=== PATIENT | female | born 1950 | race Caucasian/White ===

== ENCOUNTER 2019-11-17 15:15 | Observation (INO) | payer MEDICARE ==
[2019-11-17] MEDS ORDERED: Robitussin AC Syrup Unit Dose Cup PO PRN (15:31)
[2019-11-17] MEDS ORDERED: TYLENOL 325 MG PO PRN (15:31)
[2019-11-17] MEDS ORDERED: Sodium Chloride 0.9% 1000 ML 1,000 ML IV STA (15:31)
[2019-11-17] MEDS ORDERED: HUMALOG SQ PRN (15:31)
--- NOTE | 2019-11-17 15:36 | PCM.HP.ADD ---
Addendum to History & Physical - History & Physical Addendum Addendum to History & Physical: This certifies that the History & Physical in the electronic chart reflects the current health status of the patient. If there are changes in the H&P these changes/exceptions are listed as follows.
[2019-11-17] MEDS ORDERED: DUONEB 0.5-3 MG/3 ml Neb IH ONE (15:47)
[2019-11-17] MEDS: DUONEB 0.5-3 MG/3 ml Neb IH SCH ×2 (15:57→23:51)
[2019-11-17 16:02] LABS: BASOPHIL % 0.2 % (0.0-0.4); Basophil (Absolute #) 0.01 (0-0.4); Eosinophil (Absolute #) 0 (0-0.5); Hematocrit 40.7 % (35-47); Hemoglobin 13.3 gm/dl (12.0-16.0); Lymphocyte (Absolute #) 0.77 (1.0-4.6); Lymphocytes % 16.7 % (24.0-44.0); Mean Cell Volume 94.4 fl (78-100); Mean Corpuscular Hemoglobin 30.9 pg (26-32); Mean Corpuscular Hgb Concent. 32.7 g/dl (32-36); Mean Platelet Volume 9.5 fl (7.5-11.0); Monocyte (Absolute #) 0.74 (0.0-1.3); Neutrophil % 67.1 % (36.0-66.0); Platelet Count 199 K/mm3 (150-450); Red Blood Count 4.31 M/mm3 (4.1-5.4); Red Cell Distribution Width 13.5 % (11.5-14.0); White Blood Count 4.6 K/mm3 (4.0-10.5)
[2019-11-17 16:13] LABS: ALBUMIN 4.3 g/dL (3.5-5.0); ALKALINE PHOSPHATASE 82 U/L (38-126); ANION GAP 11.3 MEQ/L (5-15); BLOOD UREA NITROGEN 14 mg/dL (7-17); CHLORIDE 99 mmol/L (98-107); Calcium 9.4 mg/dL (8.4-10.2); Carbon Dioxide 32 mmol/L (22-30); Creatinine 1 0.59 mg/dL (0.52-1.04); Glucose 117 mg/dL (74-106); Potassium 3.4 mmol/L (3.5-5.1); SGOT/AST 26 U/L (14-36); SGPT/ALT 22 U/L (0-35); SODIUM 138 mmol/L (137-145); Total Protein 7.8 g/dL (6.3-8.2)
[2019-11-17] MEDS ORDERED: MEDICATION INTERVENTION MC SCH (16:30)
[2019-11-17 16:34] LABS: INFLUENZA B NEGATIVE (NEGATIVE); RESPIRATORY SYNCTIAL VIRUS NEGATIVE (Negative)
[2019-11-17 16:42] LABS: INFLUENZA A POSITIVE (NEGATIVE)
[2019-11-17] MEDS: ROCEPHIN 1 Gm-D5w 50 ml Bag** 1 G/50 ML IVPB IV SCH (16:49)
--- NOTE | 2019-11-17 16:52 | XRAY ---
Indication: Fever, cough, vomiting, headache, and weakness. Comparison: December 11, 2018. PA/lateral chest unchanged again with a few tiny calcified granulomas and minimal left base fibrosis/scarring/suture material. Remaining heart and lungs unremarkable. Bony thorax intact again with mild degenerative changes. Impression: Continued nonacute chest with chronic features.
[2019-11-17] MEDS ORDERED: INSULIN REGULAR HUMAN 40 UNIT IJ SCH (17:30)
[2019-11-17] MEDS ORDERED: Robitussin-Dm Syrup PO PRN (17:37)
[2019-11-17] MEDS: Sodium Chloride 0.9% 1000 ML 1,000 ML IV SCH (17:48)
[2019-11-17] MEDS: HUMULIN R SQ SCH ×2 (17:49→18:10)
[2019-11-17] MEDS: Glucophage 500 MG PO SCH ×2 (17:49→21:13)
[2019-11-17] MEDS ORDERED: Actos 30 MG PO SCH (18:00)
[2019-11-17] MEDS: Tamiflu 75MG Capsule PO SCH (21:13)
[2019-11-18] MEDS: Sodium Chloride 0.9% 1000 ML 1,000 ML IV SCH (03:32)
[2019-11-18] MEDS ORDERED: Novolin N SQ SCH ×2 (08:00→10:00)
[2019-11-18] MEDS: DUONEB 0.5-3 MG/3 ml Neb IH SCH ×2 (08:01→13:00)
[2019-11-18] MEDS: HUMULIN R SQ SCH (09:26)
[2019-11-18] MEDS: Tamiflu 75MG Capsule PO SCH (09:27)
[2019-11-18] MEDS: ROCEPHIN 1 Gm-D5w 50 ml Bag** 1 G/50 ML IVPB IV SCH (09:27)
[2019-11-18 12:09] VITALS: BP 139/66; O2SAT 97
--- NOTE | 2019-11-18 12:46 | PCM.DS ---
Discharge Summary Date of Admission: 11/17/19 15:28 Admitting Physician: SAMUEL KENNEDY Primary Care Provider: SAMUEL KENNEDY Allergies Allergies codeine Allergy (Severe, Verified 11/17/19 15:49) difficulty breathing and hives egg Allergy (Severe, Verified 11/17/19 15:49) sob, hives morphine Allergy (Severe, Verified 11/17/19 15:49) hives swelling Penicillins Allergy (Severe, Verified 11/17/19 15:49) hives swelling procaine [From Novocain] Allergy (Severe, Verified 11/17/19 15:49) hives and face swelling hydromorphone Allergy (Intermediate, Verified 11/17/19 15:49) vomiting aspirin Allergy (Mild, Verified 11/17/19 15:49) upsets stomach Hospital Summary - Hospital Course Hospital Course: Chief Complaint Diagnosis bronchitis Allergies Allergy/AdvReac Type Severity Reaction Status Date / Time codeine Allergy Severe Verified 11/17/19 15:49 egg Allergy Severe Verified 11/17/19 15:49 morphine Allergy Severe Verified 11/17/19 15:49 Penicillins Allergy Severe Verified 11/17/19 15:49 procaine [From Novocain] Allergy Severe Verified 11/17/19 15:49 hydromorphone Allergy Intermediate Verified 11/17/19 15:49 aspirin Allergy Mild Verified 11/17/19 15:49 Vital Signs (Last 24 hours) Temp Pulse Resp BP Pulse Ox 11/18/19 12:00 98.4 F 97 H 18 139/66 97 11/18/19 08:04 95 11/18/19 08:02 80 20 95 11/18/19 07:33 98.3 F 83 18 136/66 93 L 11/18/19 04:00 98.9 F 92 H 16 124/61 93 L 11/18/19 00:00 99.2 F 86 15 130/62 96 11/17/19 23:51 86 15 96 11/17/19 20:00 97.2 F 87 20 126/65 98 11/17/19 16:30 98.0 F 84 20 137/64 92 L 11/17/19 16:06 98.0 F 84 18 137/64 92 L 11/17/19 16:03 88 18 94 L Home Medications Medication Instructions Recorded Confirmed Last Taken Type Insulin Regular, Human [Novolin R] 10 unit IJ TIDWM 11/17/19 11/18/19 11/17/19 History Pioglitazone 30 mg [Actos 30 30 mg PO EVENING MEAL 11/17/19 11/17/19 History MG] Current Medications Generic Name Dose Route Start Last Admin Trade Name Freq PRN Reason Stop Dose Admin Acetaminophen 325 mg 11/17/19 15:31 11/18/19 03:31 Tylenol 325 Mg PO 12/17/19 15:30 325 mg Q4H PRN PRN Administration PAIN, FEVER, HEADACHE Albuterol/Ipratropium 3 ml 11/17/19 19:00 11/18/19 08:01 Duoneb 0.5-3 Mg/3 Ml Neb IH 12/17/19 18:59 3 ml Q6HRT KACY Administration Guaifenesin/Dextromethorphan 10 ml 11/17/19 17:37 Robitussin-Dm Syrup PO 12/17/19 17:36 Q4H PRN PRN COUGH Ceftriaxone Sodium/Dextrose 1 g in 50 mls @ 100 mls/hr 11/17/19 15:45 09:27 Rocephin 1 Gm-D5w 50 Ml Bag IV 12/17/19 15:44 100 mls/hr Q24H10 KACY Administration Sodium Chloride 1,000 mls @ 100 mls/hr 11/17/19 15:45 11/18/19 03:32 Sodium Chloride 0.9% 1000 Ml IV 12/17/19 15:44 100 mls/hr .Q10H KACY Administration Insulin Human Lispro 0 unit 11/17/19 15:31 Humalog SQ 12/17/19 15:30 UD PRN HYPERGLYCEMIA Insulin Human NPH 40 unit 11/18/19 08:00 11/18/19 09:27 Novolin N SQ 12/18/19 07:59 Not Given AMINSULIN KACY Insulin Human Regular 40 unit 11/17/19 17:30 11/18/19 09:26 Humulin R SQ 12/17/19 17:29 10 unit BIDAC KACY Administration Metformin HCl 250 mg 11/17/19 18:00 11/17/19 21:13 Glucophage 500 Mg PO 12/17/19 17:59 250 mg 1800,2200 KACY Administration Oseltamivir Phosphate 75 mg 11/17/19 22:00 11/18/19 09:27 Tamiflu 75mg Capsule PO 11/22/19 21:59 75 mg BID KACY Administration Pioglitazone HCl 30 mg 11/17/19 18:00 11/17/19 17:49 Actos 30 Mg PO 12/17/19 17:59 30 mg EVENING MEAL KACY Administration Discontinued Medications Generic Name Dose Route Start Last Admin Trade Name Sher PRN Reason Stop Dose Admin Albuterol/Ipratropium Confirm 11/17/19 15:47 Duoneb 0.5-3 Mg/3 Ml Neb Administered 11/17/19 15:48 Dose 3 ml IH .STK-MED ONE Sodium Chloride 1,000 mls @ 999 mls/hr 11/17/19 15:31 11/17/19 16:49 Sodium Chloride 0.9% 1000 Ml IV 11/17/19 16:31 999 mls/hr .Q1H1M STA Administration Miscellaneous Information 0 each 11/17/19 16:30 Medication Intervention 12/17/19 16:29 .RN TO CHECK WITH DR WOODRUFF Intake & Output (Last 24 hours) 11/16/19 11/17/19 11/18/19 11/19/19 11:59 11:59 11:59 11:59 Intake Total 3359 Output Total 1450 Balance 1909 Weight 89.3 kg Laboratory Results (Last 24 hours) 11/17/19 11/17/19 11/17/19 17:00 16:00 16:00 WBC RBC Hgb Hct MCV MCH MCHC RDW Plt Count MPV Gran % Eos # (Auto) Absolute Lymphs (auto) Absolute Monos (auto) Lymphocytes % Monocytes % Eosinophils % Basophils % Absolute Granulocytes Basophils # Sodium 138 Potassium 3.4 L Chloride 99 Carbon Dioxide 32 H Anion Gap 11.3 BUN 14 Creatinine 0.59 Estimated GFR > 60.0 Glucose 117 H Hemoglobin A1c 8.63 H Calcium 9.4 Total Bilirubin 0.40 AST 26 ALT 22 Alkaline Phosphatase 82 Serum Total Protein 7.8 Albumin 4.3 Influenza Type A Ag POSITIVE Influenza Type B Ag NEGATIVE RSV (PCR) NEGATIVE 11/17/19 16:00 WBC 4.6 RBC 4.31 Hgb 13.3 Hct 40.7 MCV 94.4 MCH 30.9 MCHC 32.7 RDW 13.5 Plt Count 199 MPV 9.5 Gran % 67.1 H Eos # (Auto) 0 Absolute Lymphs (auto) 0.77 L Absolute Monos (auto) 0.74 Lymphocytes % 16.7 L Monocytes % 16.0 H Eosinophils % 0.0 Basophils % 0.2 Absolute Granulocytes 3.10 Basophils # 0.01 Sodium Potassium Chloride Carbon Dioxide Anion Gap BUN Creatinine Estimated GFR Glucose Hemoglobin A1c Calcium Total Bilirubin AST ALT Alkaline Phosphatase Serum Total Protein Albumin Influenza Type A Ag Influenza Type B Ag RSV (PCR) Orders (Last 24 hours) Category Date Time Status Up Ad Paola TOLERATED Activity 11/17/19 15:32 Active Accucheck ACHS Care 11/17/19 15:32 Active Isolation, Initiate & Maintain Q4H Care 11/17/19 16:50 Active Miscellaneous Nursing Order ROUTINE Care 11/17/19 17:[address] in Observation ROUTINE Care 11/17/19 15:31 Active 2000 Calorie ADA Diet 11/17/19 Dinner Active Nutritional Admission Screen once Diet 11/17/19 16:21 Active CHEST 2 VIEWS (PA AND LAT) Stat Exams 11/17/19 16:40 Completed CBC W DIFF Stat Lab 11/17/19 16:00 Completed CMP Stat Lab 11/17/19 16:00 Completed HEMOGLOBIN A1C Urgent Lab 11/17/19 17:00 Completed Respiratory Panel Stat Lab 11/17/19 16:00 Completed Acetaminophen 325 mg [Tylenol 325 mg] Med 11/17/19 15:31 Active 325 mg PO Q4H PRN PRN Albuterol/Ipratropium 3ml Neb* [DUONEB 0.5-3 MG/3 ml Med 11/17/19 15:47 Discontinued Neb] 3 ml IH .STK-MED ONE Albuterol/Ipratropium 3ml Neb* [DUONEB 0.5-3 MG/3 ml Med 11/17/19 19:00 Active Neb] 3 ml IH Q6HRT Ceftriaxone 1 GM/50 ML PREMIX* [ROCEPHIN 1 Gm-D5w 50 ml Med 11/17/19 15:45 Active Bag] 1 g in 50 ml IV Q24H10 Guaifenesin/D-Methorphan Hb [Robitussin-Dm Syrup] Med 11/17/19 17:37 Active 10 ml PO Q4H PRN PRN Insulin Lispro [Humalog] Med 11/17/19 15:31 Active See Dose Instructions SQ UD PRN Insulin NPH Human Recom [Novolin N] Med 11/18/19 08:00 Active 40 unit SQ AMINSULIN Insulin Regular, Human [Humulin R] Med 11/17/19 17:30 Active 40 unit SQ BIDAC Medication Intervention Med 11/17/19 16:30 Discontinued 0 each .RN TO CHECK WITH Metformin HCl 500 mg [Glucophage 500 MG] Med 11/17/19 18:00 Active 250 mg PO 1800,2200 NaCl 0.9% 1000 ml [Sodium Chloride 0.9% 1000 ML] 1,000 Med 11/17/19 15:45 Active ml IV 100 mls/hr NaCl 0.9% 1000 ml [Sodium Chloride 0.9% 1000 ML] 1,000 Med 11/17/19 15:31 Discontinued ml IV 999 mls/hr Oseltamivir 75 mg [Tamiflu 75MG Capsule] Med 11/17/19 22:00 Active 75 mg PO BID Pioglitazone 30 mg [Actos 30 MG] Med 11/17/19 18:00 Active 30 mg PO EVENING MEAL Peak Expiratory Flow Rate ONCE RT 11/17/19 15:58 Active Pulse Oximetry .spot check RT 11/17/19 15:58 Active Respiratory Therapy Assessment DAILY RT 11/17/19 15:57 Active Patient Care Notes (Last 24 hours) 11/17/19 23:47 Nursing Note [facility] Tam[facility] Grace [facility] [address] [facility] Initialized on 11/17/19 23:47 - END OF NOTE 11/17/19 18:27 Nursing Note by Sara Molina Attempted to call the [place] [facility] for possible Melchor testing per Dr Kennedy request. The after hours number is unavailable and I was unable to speak with anyone after multiple attempts. Will pass on for Day shift or Infection Control to do after 815 am on 11/17 Initialized on 11/17/19 18:27 - END OF NOTE 11/17/19 17:35 Nursing Note by Tammy Sprague Reported Dr Kennedy via phone pt's Flu A result, chest x-ray and received confirmation on pt's cough med. Initialized on 11/17/19 17:35 - END OF NOTE 11/17/19 16:26 Nursing Note by Tammy Sprague Dr called with home meds and clarification of pt's cough med. New orders received. Initialized on 11/17/19 16:26 - END OF NOTE 11/17/19 15:58 Nursing Note by Wendy Esquivel I CALLED OFFICE TO LET HIM KNOW HIS ADMIT IS HERE. Initialized on 11/17/19 15:58 - END OF NOTE - Vitals & Intake/Output Vital Signs: Vital Signs Temperature 98.4 F 11/18/19 12:00 Pulse Rate 97 H 11/18/19 12:00 Respiratory Rate 18 11/18/19 12:00 Blood Pressure 139/66 11/18/19 12:00 O2 Sat by Pulse Oximetry 97 11/18/19 12:00 Intake & Output: Intake & Output 11/16/19 11/17/19 11/18/19 11/19/19 11:59 11:59 11:59 11:59 Intake Total 3359 Output Total 1450 Balance 1909 Weight 89.3 kg - Lab Result Diagrams: 11/17/19 16:00 11/17/19 16:00 Lab Results-Last 24 Hrs: Accuchecks Date 11/18/19 Date 11/17/19 Time 07:30 Time 17:00 Accucheck Value: 187 Accucheck Value: 174 Lab Results-Last 24 Hours 11/17/19 11/17/19 11/17/19 Range/Units 16:00 16:00 16:00 WBC 4.6 (4.0-10.5) K/mm3 RBC 4.31 (4.1-5.4) M/mm3 Hgb 13.3 (12.0-16.0) gm/dl Hct 40.7 (35-47) % MCV 94.4 (78-100) fl MCH 30.9 (26-32) pg MCHC 32.7 (32-36) g/dl RDW 13.5 (11.5-14.0) % Plt Count 199 (150-450) K/mm3 MPV 9.5 (7.5-11.0) fl Gran % 67.1 H (36.0-66.0) % Eos # (Auto) 0 (0-0.5) Absolute Lymphs (auto) 0.77 L (1.0-4.6) Absolute Monos (auto) 0.74 (0.0-1.3) Lymphocytes % 16.7 L (24.0-44.0) % Monocytes % 16.0 H (0.0-12.0) % Eosinophils % 0.0 (0.00-5.0) % Basophils % 0.2 (0.0-0.4) % Absolute Granulocytes 3.10 (1.4-6.9) Basophils # 0.01 (0-0.4) Sodium 138 (137-145) mmol/L Potassium 3.4 L (3.5-5.1) mmol/L Chloride 99 (98-107) mmol/L Carbon Dioxide 32 H (22-30) mmol/L Anion Gap 11.3 (5-15) MEQ/L BUN 14 (7-17) mg/dL Creatinine 0.59 (0.52-1.04) mg/dL Estimated GFR > 60.0 ML/MIN Glucose 117 H (74-106) mg/dL Hemoglobin A1c (4.5-6.0) % Calcium 9.4 (8.4-10.2) mg/dL Total Bilirubin 0.40 (0.2-1.3) mg/dL AST 26 (14-36) U/L ALT 22 (0-35) U/L Alkaline Phosphatase 82 (38-126) U/L Serum Total Protein 7.8 (6.3-8.2) g/dL Albumin 4.3 (3.5-5.0) g/dL Influenza Type A Ag POSITIVE (NEGATIVE) Influenza Type B Ag NEGATIVE (NEGATIVE) RSV (PCR) NEGATIVE (Negative) 11/17/19 Range/Units 17:00 WBC (4.0-10.5) K/mm3 RBC (4.1-5.4) M/mm3 Hgb (12.0-16.0) gm/dl Hct (35-47) % MCV (78-100) fl MCH (26-32) pg MCHC (32-36) g/dl RDW (11.5-14.0) % Plt Count (150-450) K/mm3 MPV (7.5-11.0) fl Gran % (36.0-66.0) % Eos # (Auto) (0-0.5) Absolute Lymphs (auto) (1.0-4.6) Absolute Monos (auto) (0.0-1.3) Lymphocytes % (24.0-44.0) % Monocytes % (0.0-12.0) % Eosinophils % (0.00-5.0) % Basophils % (0.0-0.4) % Absolute Granulocytes (1.4-6.9) Basophils # (0-0.4) Sodium (137-145) mmol/L Potassium (3.5-5.1) mmol/L Chloride (98-107) mmol/L Carbon Dioxide (22-30) mmol/L Anion Gap (5-15) MEQ/L BUN (7-17) mg/dL Creatinine (0.52-1.04) mg/dL Estimated GFR ML/MIN Glucose (74-106) mg/dL Hemoglobin A1c 8.63 H (4.5-6.0) % Calcium (8.4-10.2) mg/dL Total Bilirubin (0.2-1.3) mg/dL AST (14-36) U/L ALT (0-35) U/L Alkaline Phosphatase (38-126) U/L Serum Total Protein (6.3-8.2) g/dL Albumin (3.5-5.0) g/dL Influenza Type A Ag (NEGATIVE) Influenza Type B Ag (NEGATIVE) RSV (PCR) (Negative) Micro Results-Entire Visit: Accuchecks Date 11/18/19 Date 11/17/19 Time 07:30 Time 17:00 Accucheck Value: 187 Accucheck Value: 174 - Radiology Exams Ordered Rad Exams-Entire Visit: Radiology Procedures Category Date Time Status CHEST 2 VIEWS (PA AND LAT) Stat Exams 11/17/19 16:40 Completed - Procedures and Test Procedures and Tests throughout Hospitalization: Therapy Orders & Screens 11/17/19 15:57 Respiratory Therapy Assessment DAILY Comment: Diagnosis: bronchitis 11/17/19 15:58 Peak Expiratory Flow Rate ONCE Comment: Reason For Exam: Diagnosis: bronchitis Discharge Exam General Appearance: no apparent distress, alert Neurologic Exam: alert, oriented x 3, cooperative, normal mood/affect, nml cerebellar function, sensation nml, No motor deficits Eye Exam: PERRL, EOMI, eyes nml inspection Ears, Nose, Throat Exam: normal ENT inspection, pharynx normal, moist mucous membranes Neck Exam: normal inspection, non-tender, supple, full range of motion Respiratory Exam: normal breath sounds, lungs clear, No respiratory distress Cardiovascular Exam: regular rate/rhythm, normal heart sounds Gastrointestinal/Abdomen Exam: soft, No tenderness, No mass Pelvic Exam: deferred Rectal Exam: deferred Back Exam: normal inspection, normal range of motion, No CVA tenderness, No vertebral tenderness Extremity Exam: normal inspection, normal range of motion Skin Exam: normal color, warm, dry Final Diagnosis/Problem List - Final Discharge Diagnosis/Problem (1) Influenza A Current Visit: Yes Status: Acute Priority: High Assessment & Plan: Chief Complaint Diagnosis bronchitis Allergies Allergy/AdvReac Type Severity Reaction Status Date / Time codeine Allergy Severe Verified 11/17/19 15:49 egg Allergy Severe Verified 11/17/19 15:49 morphine Allergy Severe Verified 11/17/19 15:49 Penicillins Allergy Severe Verified 11/17/19 15:49 procaine [From Novocain] Allergy Severe Verified 11/17/19 15:49 hydromorphone Allergy Intermediate Verified 11/17/19 15:49 aspirin Allergy Mild Verified 11/17/19 15:49 Vital Signs (Last 24 hours) Temp Pulse Resp BP Pulse Ox 11/18/19 12:00 98.4 F 97 H 18 139/66 97 11/18/19 08:04 95 11/18/19 08:02 80 20 95 11/18/19 07:33 98.3 F 83 18 136/66 93 L 11/18/19 04:00 98.9 F 92 H 16 124/61 93 L 11/18/19 00:00 99.2 F 86 15 130/62 96 11/17/19 23:51 86 15 96 11/17/19 20:00 97.2 F 87 20 126/65 98 11/17/19 16:30 98.0 F 84 20 137/64 92 L 11/17/19 16:06 98.0 F 84 18 137/64 92 L 11/17/19 16:03 88 18 94 L Home Medications Medication Instructions Recorded Confirmed Last Taken Type Insulin Regular, Human [Novolin R] 10 unit IJ TIDWM 11/17/19 11/18/19 11/17/19 History Pioglitazone 30 mg [Actos 30 30 mg PO EVENING MEAL 11/17/19 11/17/19 History MG] Current Medications Generic Name Dose Route Start Last Admin Trade Name Freq PRN Reason Stop Dose Admin Acetaminophen 325 mg 11/17/19 15:31 11/18/19 03:31 Tylenol 325 Mg PO 12/17/19 15:30 325 mg Q4H PRN PRN Administration PAIN, FEVER, HEADACHE Albuterol/Ipratropium 3 ml 11/17/19 19:00 11/18/19 08:01 Duoneb 0.5-3 Mg/3 Ml Neb IH 12/17/19 18:59 3 ml Q6HRT KACY Administration Guaifenesin/Dextromethorphan 10 ml 11/17/19 17:37 Robitussin-Dm Syrup PO 12/17/19 17:36 Q4H PRN PRN COUGH Ceftriaxone Sodium/Dextrose 1 g in 50 mls @ 100 mls/hr 11/17/19 15:45 09:27 Rocephin 1 Gm-D5w 50 Ml Bag IV 12/17/19 15:44 100 mls/hr Q24H10 KACY Administration Sodium Chloride 1,000 mls @ 100 mls/hr 11/17/19 15:45 11/18/19 03:32 Sodium Chloride 0.9% 1000 Ml IV 12/17/19 15:44 100 mls/hr .Q10H KACY Administration Insulin Human Lispro 0 unit 11/17/19 15:31 Humalog SQ 12/17/19 15:30 UD PRN HYPERGLYCEMIA Insulin Human NPH 40 unit 11/18/19 08:00 11/18/19 09:27 Novolin N SQ 12/18/19 07:59 Not Given AMINSULIN KACY Insulin Human Regular 40 unit 11/17/19 17:30 11/18/19 09:26 Humulin R SQ 12/17/19 17:29 10 unit BIDAC KACY Administration Metformin HCl 250 mg 11/17/19 18:00 11/17/19 21:13 Glucophage 500 Mg PO 12/17/19 17:59 250 mg 1800,2200 KACY Administration Oseltamivir Phosphate 75 mg 11/17/19 22:00 11/18/19 09:27 Tamiflu 75mg Capsule PO 11/22/19 21:59 75 mg BID KACY Administration Pioglitazone HCl 30 mg 11/17/19 18:00 11/17/19 17:49 Actos 30 Mg PO 12/17/19 17:59 30 mg EVENING MEAL KACY Administration Discontinued Medications Generic Name Dose Route Start Last Admin Trade Name Sher PRN Reason Stop Dose Admin Albuterol/Ipratropium Confirm 11/17/19 15:47 Duoneb 0.5-3 Mg/3 Ml Neb Administered 11/17/19 15:48 Dose 3 ml IH .STK-MED ONE Sodium Chloride 1,000 mls @ 999 mls/hr 11/17/19 15:31 11/17/19 16:49 Sodium Chloride 0.9% 1000 Ml IV 11/17/19 16:31 999 mls/hr .Q1H1M STA Administration Miscellaneous Information 0 each 11/17/19 16:30 Medication Intervention 12/17/19 16:29 .RN TO CHECK WITH DR WOODRUFF Intake & Output (Last 24 hours) 11/16/19 11/17/19 11/18/19 11/19/19 11:59 11:59 11:59 11:59 Intake Total 3359 Output Total 1450 Balance 1909 Weight 89.3 kg Laboratory Results (Last 24 hours) 11/17/19 11/17/19 11/17/19 17:00 16:00 16:00 WBC RBC Hgb Hct MCV MCH MCHC RDW Plt Count MPV Gran % Eos # (Auto) Absolute Lymphs (auto) Absolute Monos (auto) Lymphocytes % Monocytes % Eosinophils % Basophils % Absolute Granulocytes Basophils # Sodium 138 Potassium 3.4 L Chloride 99 Carbon Dioxide 32 H Anion Gap 11.3 BUN 14 Creatinine 0.59 Estimated GFR > 60.0 Glucose 117 H Hemoglobin A1c 8.63 H Calcium 9.4 Total Bilirubin 0.40 AST 26 ALT 22 Alkaline Phosphatase 82 Serum Total Protein 7.8 Albumin 4.3 Influenza Type A Ag POSITIVE Influenza Type B Ag NEGATIVE RSV (PCR) NEGATIVE 11/17/19 16:00 WBC 4.6 RBC 4.31 Hgb 13.3 Hct 40.7 MCV 94.4 MCH 30.9 MCHC 32.7 RDW 13.5 Plt Count 199 MPV 9.5 Gran % 67.1 H Eos # (Auto) 0 Absolute Lymphs (auto) 0.77 L Absolute Monos (auto) 0.74 Lymphocytes % 16.7 L Monocytes % 16.0 H Eosinophils % 0.0 Basophils % 0.2 Absolute Granulocytes 3.10 Basophils # 0.01 Sodium Potassium Chloride Carbon Dioxide Anion Gap BUN Creatinine Estimated GFR Glucose Hemoglobin A1c Calcium Total Bilirubin AST ALT Alkaline Phosphatase Serum Total Protein Albumin Influenza Type A Ag Influenza Type B Ag RSV (PCR) Orders (Last 24 hours) Category Date Time Status Up Ad Paola TOLERATED Activity 11/17/19 15:32 Active Accucheck ACHS Care 11/17/19 15:32 Active Isolation, Initiate & Maintain Q4H Care 11/17/19 16:50 Active Miscellaneous Nursing Order ROUTINE Care 11/17/19 17:[address] in Observation ROUTINE Care 11/17/19 15:31 Active 2000 Calorie ADA Diet 11/17/19 Dinner Active Nutritional Admission Screen once Diet 11/17/19 16:21 Active CHEST 2 VIEWS (PA AND LAT) Stat Exams 11/17/19 16:40 Completed CBC W DIFF Stat Lab 11/17/19 16:00 Completed CMP Stat Lab 11/17/19 16:00 Completed HEMOGLOBIN A1C Urgent Lab 11/17/19 17:00 Completed Respiratory Panel Stat Lab 11/17/19 16:00 Completed Acetaminophen 325 mg [Tylenol 325 mg] Med 11/17/19 15:31 Active 325 mg PO Q4H PRN PRN Albuterol/Ipratropium 3ml Neb* [DUONEB 0.5-3 MG/3 ml Med 11/17/19 15:47 Discontinued Neb] 3 ml IH .STK-MED ONE Albuterol/Ipratropium 3ml Neb* [DUONEB 0.5-3 MG/3 ml Med 11/17/19 19:00 Active Neb] 3 ml IH Q6HRT Ceftriaxone 1 GM/50 ML PREMIX* [ROCEPHIN 1 Gm-D5w 50 ml Med 11/17/19 15:45 Active Bag] 1 g in 50 ml IV Q24H10 Guaifenesin/D-Methorphan Hb [Robitussin-Dm Syrup] Med 11/17/19 17:37 Active 10 ml PO Q4H PRN PRN Insulin Lispro [Humalog] Med 11/17/19 15:31 Active See Dose Instructions SQ UD PRN Insulin NPH Human Recom [Novolin N] Med 11/18/19 08:00 Active 40 unit SQ AMINSULIN Insulin Regular, Human [Humulin R] Med 11/17/19 17:30 Active 40 unit SQ BIDAC Medication Intervention Med 11/17/19 16:30 Discontinued 0 each MC .RN TO CHECK WITH Metformin HCl 500 mg [Glucophage 500 MG] Med 11/17/19 18:00 Active 250 mg PO 1800,2200 NaCl 0.9% 1000 ml [Sodium Chloride 0.9% 1000 ML] 1,000 Med 11/17/19 15:45 Active ml IV 100 mls/hr NaCl 0.9% 1000 ml [Sodium Chloride 0.9% 1000 ML] 1,000 Med 11/17/19 15:31 Discontinued ml IV 999 mls/hr Oseltamivir 75 mg [Tamiflu 75MG Capsule] Med 11/17/19 22:00 Active 75 mg PO BID Pioglitazone 30 mg [Actos 30 MG] Med 11/17/19 18:00 Active 30 mg PO EVENING MEAL Peak Expiratory Flow Rate ONCE RT 11/17/19 15:58 Active Pulse Oximetry .spot check RT 11/17/19 15:58 Active Respiratory Therapy Assessment DAILY RT 11/17/19 15:57 Active Patient Care Notes (Last 24 hours) 11/17/19 23:47 Nursing Note [facility] Tammy Grace [facility] [address] [facility] Initialized on 11/17/19 23:47 - END OF NOTE 11/17/19 18:27 Nursing Note by Sara Molina Attempted to call the [facility] for possible Melchor testing per Dr Kennedy request. The after hours number is unavailable and I was unable to speak with anyone after multiple attempts. Will pass on for Day shift or Infection Control to do after 815 am on 11/17 Initialized on 11/17/19 18:27 - END OF NOTE 11/17/19 17:35 Nursing Note by Tammy Sprague Reported Dr Kennedy via phone pt's Flu A result, chest x-ray and received confirmation on pt's cough med. Initialized on 11/17/19 17:35 - END OF NOTE 11/17/19 16:26 Nursing Note by Tammy Sprague Dr called with home meds and clarification of pt's cough med. New orders received. Initialized on 11/17/19 16:26 - END OF NOTE 11/17/19 15:58 Nursing Note by Wendy Esquivel I CALLED OFFICE TO LET HIM KNOW HIS ADMIT IS HERE. Initialized on 11/17/19 15:58 - END OF NOTE Code(s): J10.1 - FLU DUE TO OTH IDENT INFLUENZA VIRUS W OTH RESP MANIFEST (2) Bronchitis Current Visit: Yes Status: Resolved Code(s): J40 - BRONCHITIS, NOT SPECIFIED ACUTE OR CHRONIC - Discharge Discharge Date: 11/18/19 Disposition: Home, Self-Care Condition: Stable Prescriptions: New Oseltamivir 75 mg [Tamiflu 75MG Capsule] 75 mg PO BID #10 cap Continue Insulin NPH Human Recom [Novolin N] 40 unit SQ HS Metformin HCl 500 mg [Glucophage 500 MG] 500 mg PO EVENING MEAL Pioglitazone 30 mg [Actos 30 MG] 30 mg PO EVENING MEAL Insulin Regular, Human [Novolin R] 10 unit IJ TIDWM Follow up with: SAMUEL KENNEDY MD [Primary Care Provider] - 1 Week
[2019-11-18 13:03] VITALS: PULSE 100
== END 2019-11-18 14:35 | disposition home or self-care (01) ==
LOC: MED SURG 15:28
PROVIDERS: ADMIT General Practice; ATTEND General Practice
DX: J09.X2 Influenza due to identified novel influenza A virus with other respiratory manifestations (principal); J20.9 Acute bronchitis, unspecified; E11.42 Type 2 diabetes mellitus with diabetic polyneuropathy; E78.5 Hyperlipidemia, unspecified; R19.7 Diarrhea, unspecified; Z79.899 Other long term (current) drug therapy
CPT/HCPCS: 36415; 71046; 80053; 82962; 83036; 85025; 87631; 94150; 94640; 94760; G0378; J0696; J1815; A9270-GY

== ENCOUNTER 2021-12-21 07:01 | Day surgery (SDC) | payer MEDICARE ==
[2021-12-21] MEDS ORDERED: Decadron 4 MG INJ IV ONE (07:02)
[2021-12-21] MEDS ORDERED: Xylocaine 1% Vial 30 ML PF IJ ONE (07:02)
[2021-12-21] MEDS ORDERED: Sodium Chloride 0.9(Preservative Free) 10 ML IJ ONE (07:02)
[2021-12-21] MEDS ORDERED: Depo-Medrol 40 MG/ML IM ONE (07:02)
[2021-12-21] MEDS ORDERED: DIPRIVAN 200 MG/20 ML IV ONE ×2 (08:38→08:52)
[2021-12-21] MEDS ORDERED: Lactated Ringers 1,000 ML IV ONE (08:46)
--- NOTE | 2021-12-21 10:19 | XRAY ---
Indication: Left piriformis muscle injection Intraoperative fluoroscopy provided for 27 seconds. Single digital spot image submitted for interpretation demonstrates posterior needle tip projecting over the expected left piriformis muscle. Small amount of contrast injected for needle tip placement. Correlate with intraoperative findings/report.
--- NOTE | 2021-12-21 10:19 | XRAY ---
Indication: Left L4-S1 transforaminal PABLO. Intraoperative fluoroscopy provided for 32 seconds. 5 digital spot image submitted for interpretation demonstrates posterior needle tips projecting over the expected left L4 and L5 nerve roots. Small amount of contrast injected for needle tip placement. Correlate with intraoperative findings/report.
--- NOTE | 2021-12-21 11:18 | XRAY ---
32 seconds fluoroscopy time in surgery for left L4-S1 transforaminal PABLO.
--- NOTE | 2021-12-21 11:18 | XRAY ---
27 seconds fluoroscopy time in surgery for injection of the left piriformis muscle.
== END 2021-12-21 09:25 | disposition home or self-care (01) ==
LOC: SDC-PAIN 07:01
PROVIDERS: ATTEND Psychiatry & Neurology Pain Medicine
DX: M54.16 Radiculopathy, lumbar region (principal); M79.18 Myalgia, other site; E11.9 Type 2 diabetes mellitus without complications; Z79.899 Other long term (current) drug therapy
CPT/HCPCS: 20552; 64483; 64484; 72020; 72100; 77002; 77003; 82947; 99100; J1030; J1100; J2001; J2704; Q9966

== ENCOUNTER 2022-01-18 07:00 | Day surgery (SDC) | payer MEDICARE ==
[2022-01-18] MEDS ORDERED: Depo-Medrol 40 MG/ML IM ONE (07:01)
[2022-01-18] MEDS ORDERED: BUPIVACAINE 0.5% VIAL IJ ONE (07:01)
[2022-01-18] MEDS ORDERED: DIPRIVAN 200 MG/20 ML IV ONE (08:53)
[2022-01-18] MEDS ORDERED: Lactated Ringers 1,000 ML IV ONE (08:54)
--- NOTE | 2022-01-18 10:40 | XRAY ---
Indication: Bilateral SI joint injection. Intraoperative fluoroscopy provided for 19 seconds. 4 digital spot images submitted for interpretation demonstrate posterior needle tip projecting over the inferior left and right SI joints. Correlate with intraoperative findings/report.
--- NOTE | 2022-01-18 12:48 | XRAY ---
19 seconds fluoroscopy time in surgery for injections of both SI joints.
== END 2022-01-18 09:27 | disposition home or self-care (01) ==
LOC: SDC-PAIN 07:00
PROVIDERS: ATTEND Psychiatry & Neurology Pain Medicine
DX: M46.1 Sacroiliitis, not elsewhere classified (principal); I10 Essential (primary) hypertension; E11.9 Type 2 diabetes mellitus without complications; Z79.899 Other long term (current) drug therapy
CPT/HCPCS: 27096; 72202; 77002; 82947; G0260; 99100; J1030; J2704

== ENCOUNTER 2022-03-07 11:17 | Emergency (ER) | payer MEDICARE ==
[2022-03-07 12:06] VITALS: O2SAT 98
--- NOTE | 2022-03-07 12:06 | ERPHSYRPT ---
- History of Present Illness Time Seen by Provider: 03/07/22 11:35 Source: patient Exam Limitations: no limitations Patient Subjective Stated Complaint: Patient states she lost her footing and fell just prior to coming into the ED. She states she went down onto her left kn een then hit face first onto the floor. The floor was concrete. The nose pieces of her glasses cut her nose. Patient here with the c/o head and face pain from her fall. Triage Nursing Assessment: Patient ambulated back to ED. No C/O pain to BLE, back, or hips. She is alert and oriented and answering questions appropriately. 2 small lacerations noted to patient's nose; one each side. Left side of lower lip is bruised. 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 Physician History: Patient is a 71-year-old white female who was walking into [place] hallway and her left toe caught on the carpet and fell through her forward she landed on her left knee and then hit her face on the concrete. This occurred just prior to arrival she went to her PCP and he sent her to the ER she complains of pain in the nose and face some in the neck and some in the left knee she denies any other pain or loss of consciousness. Occurred: just prior to arrival Reason for Fall: tripped Injuries/Pain Location: face, lower extremity (Left knee) Loss of Consciousness: no loss of consciousness Quality: aching Severity of Pain-Max: moderate Severity of Pain-Current: moderate Modifying Factors: Improves With: nothing Allergies/Adverse Reactions: codeine Allergy (Severe, Verified 03/07/22 11:26) difficulty breathing and hives egg Allergy (Severe, Verified 03/07/22 11:26) sob, hives morphine Allergy (Severe, Verified 03/07/22 11:26) hives swelling Penicillins Allergy (Severe, Verified 03/07/22 11:26) hives swelling procaine [From Novocain] Allergy (Severe, Verified 03/07/22 11:26) hives and face swelling hydromorphone Allergy (Intermediate, Verified 03/07/22 11:26) vomiting aspirin Allergy (Mild, Verified 03/07/22 11:26) upsets stomach Home Medications: Insulin NPH Human Recom [Novolin N] 40 unit SQ HS 06/09/16 [History] Insulin Regular, Human [Novolin R] 10 unit IJ BIDWM 11/17/19 [History] Gabapentin [Neurontin ] 1 cap PO DAILY PRN 03/07/22 [History] Isosorbide Mononitrate 30 mg [Imdur 30 MG] 1 tab PO DAILY 03/07/22 [History] Metoprolol Tartrate 25 mg [Lopressor 25MG Tab] 1 tab PO BID 03/07/22 [History] Hx Tetanus, Diphtheria Vaccination/Date Given: Yes (Not Tetanus) Hx Influenza Vaccination/Date Given: No Hx Pneumococcal Vaccination/Date Given: No Immunizations Up to Date: Yes Travel Risk - International Travel Have you traveled outside of the country in past 3 weeks: No - Coronavirus Screening Are you exhibiting any of the following symptoms?: No Close contact with a COVID-19 positive Pt in past 14-21 Days: No - Vaccine Status Have you recieved a Covid-19 vaccination: No - Review of Systems Constitutional: No Fever, No Chills Eyes: No Symptoms Ears, Nose, & Throat: No Symptoms Respiratory: No Cough, No Dyspnea Cardiac: No Chest Pain, No Edema, No Syncope Abdominal/Gastrointestinal: No Abdominal Pain, No Nausea, No Vomiting, No Diarrhea Genitourinary Symptoms: No Dysuria Musculoskeletal: No Back Pain, No Neck Pain Skin: No Rash Neurological: No Dizziness, No Focal Weakness, No Sensory Changes Psychological: No Symptoms Endocrine: No Symptoms All Other Systems: Reviewed and Negative - Past Medical History Pertinent Past Medical History: No Neurological History: No Pertinent History, Peripheral Neuropathy ENT History: No Pertinent History Cardiac History: No Pertinent History, Hypertension Respiratory History: Lung Cancer, Pneumonia Endocrine Medical History: Diabetes Type II Musculoskeletal History: Fractures GI Medical History: Hemorrhoids, Other History: No Pertinent History Psycho-Social History: Anxiety Female Reproductive Disorders: No Pertinent History Other Medical History: hx collar bone fx, left lung CA, melanoma, colon CA - Past Surgical History Past Surgical History: Yes Neuro Surgical History: No Pertinent History Cardiac: No Pertinent History Respiratory: Lobectomy, Other Gastrointestinal: Bowel Surgery, Cholecystectomy, Colon Resection Genitourinary: No Pertinent History Female Surgical History: Hysterectomy Other Surgical History: 3 sections of left lung removed for growth benign, 12 inches of small intesting removed, left lower lobectomy - Social History Smoking Status: Never smoker Exposure to second hand smoke: No Drug Use: none Patient Lives Alone: No - Nursing Vital Signs Nursing Vital Signs: Initial Vital Signs Temperature 97.5 F 03/07/22 11:27 Pulse Rate 107 H 03/07/22 11:27 Respiratory Rate 19 03/07/22 11:27 Blood Pressure 180/105 03/07/22 11:27 Pain Scale Pain Intensity 9 - [place] Coma Score Best Eye Response (Marcos): (4) open spontaneously Best Verbal Response ([place]): (5) oriented Best Motor Response ([place]): (6) obeys commands Marcos Total: 15 - Physical Exam General Appearance: moderate distress Head Injury: active bleeding (From the nose and some superficial lacerations on the nose.), swelling, tenderness, No Galeana's Sign Eye Exam: PERRL/EOMI ENT Exam: airway nml Neck Exam: supple, trachea midline Respiratory/Chest Exam: normal breath sounds, No respiratory distress Cardiovascular Exam: normal heart sounds, regular rate/rhythm Gastrointestinal Exam: soft, normal bowel sounds Back Exam: normal inspection, normal range of motion Extremity Exam: bony point tenderness (Of the left knee), swelling, tenderness (Swelling and tenderness of the left knee) Neurologic Exam: alert, oriented x 3, cooperative Skin Exam: laceration (Superficial lacerations of the nose) SpO2 Interpretation: normal SpO2: 98 O2 Delivery: Room Air Procedures - Laceration/Wound Repair Face Time of Procedure: 12:32 (Small superficial lacerations of the nasal area were closed by the nursing staff with Steri-Strips.) - Course Nursing assessment & vital signs reviewed: Yes - Radiology Exams Left Knee X-ray Interpretation: Negative - CT Exams Maxillofacial Bones CT Interpretation: Other (Minimally depressed nasal bone fracture tiny amount of blood in both maxillary and paranasal sinuses) Cervical Spine CT Interpretation: Other (No acute findings on the cervical spine CT) Head CT Interpretation: Other (No acute findings on the CT of the head there was noted to be a incidental finding of a small meningioma.) Ordered Tests: Active Orders 24 hr Category Date Time Status CERVICAL SPINE WO CONTRAST [CT] Stat Exams 03/07/22 11:41 Completed FACIAL BONES WO CONTRAST [CT] Stat Exams 03/07/22 11:41 Completed HEAD WITHOUT CONTRAST [CT] Stat Exams 03/07/22 11:41 Completed KNEE (3 VIEWS) Stat Exams 03/07/22 11:42 Completed - Progress Progress: improved Progress Note: 03/07/22 12:33 Patient does have a minimally depressed nasal bone fracture no manipulation appears to be necessary. She was instructed to see her PCP in 3 to 4 days after the swelling is resolved for recheck. - Departure Departure Disposition: Home Clinical Impression: Nasal fracture, Fall, Facial laceration, Contusion of left knee Condition: Stable Critical Care Time: No Referrals: SAMUEL KENNEDY MD [Primary Care Provider] - Follow up/PCP as directed Instructions: Contusion (DC), Preventing Falls in Older Adults, Nose Fracture (DC)
--- NOTE | 2022-03-07 12:17 | XRAY ---
Indication: Pain following fall. Multiple contiguous ex images obtained through the head without contrast. Comparison: None Age-appropriate global atrophy and moderate periventricular degenerative micro-ischemia bilaterally. No acute intracranial hemorrhage, abnormal extra-axial fluid collection, or mass effect. Anterior left sylvian fissure demonstrates 9 mm calcified meningioma. Fourth ventricle is midline without hydrocephalus. Tiny right frontal scalp soft tissue swelling. Bony calvarium intact. Nose bone fracture with fluid leveling in both maxillary sinuses reported separately. Impression: 1. Right frontal scalp soft tissue swelling. No acute intracranial abnormalities. 2. Atrophy and degenerative micro-ischemia within normal limits for patient's age. 3. Incidental subcentimeter left sylvian fissure calcified meningioma.
--- NOTE | 2022-03-07 12:21 | XRAY ---
Indication: Pain following fall. Multiple contiguous axial images obtained through the facial bones. Sagittal and coronal reformatted images obtained. Comparison: None Patient edentulous. Bridge of nasal bone demonstrates minimally depressed comminuted fracture with overlying soft tissue swelling and subcutaneous emphysema. Tiny fluid leveling both maxillary sinuses and partial opacification right nasal passage presumed blood. No other acute fracture, suspicious bony lesions, or radiopaque foreign body. Orbits including roof, powell, and floor is intact. Mild nasal septal deviation to the right. Right maxillary and lesser degree both ethmoid sinuses demonstrates mucosal thickening. Remaining visualized noncontrasted soft tissues are unremarkable. Impression: 1. Minimally depressed comminuted nasal bone fracture with overlying soft tissue swelling and subcutaneous emphysema. 2. Tiny blood in both maxillary sinuses and nasal passage. 3. Incidental nasal septal deviation and paranasal sinus disease.
--- NOTE | 2022-03-07 12:23 | XRAY ---
Indication: Pain following fall. Multiple contiguous images obtained through the cervical spine. Sagittal and coronal reformatted images obtained. Comparison: None Osseous structures demineralized consistent with patient's age. Anatomic variant for nonunited posterior arch C1. Axial images negative for acute fracture, suspicious bony lesions, or spinal canal stenosis. Minimal/mild C3-C7 degenerative endplate spurring and mild/moderate multilevel bilateral degenerative facet hypertrophy. The Sagittal and coronal reformed images demonstrates normal alignment with C4-C7 disc space narrowing. Small inferior C3 and superior T1 Schmorl nodes. No acute compression fracture, subluxation, or jumped facet. Normal appearing carotid cervical junction. Visualized noncontrasted soft tissues including lung apices are unremarkable. Impression: 1. Osteopenia, multilevel degenerative changes, and small C3/T1 Schmorl nodes. 2. Remaining CT cervical spine is negative.
--- NOTE | 2022-03-07 12:27 | XRAY ---
Indication: Pain following fall. Progress comparison: September 22, 2021. 3 view left knee again demonstrates osteopenia, minimal medial joint space narrowing, and tiny patella spurring. No new/acute bony, articular, or soft tissue abnormalities.
[2022-03-07] MEDS ORDERED: TYLENOL EXTRA STRENGTH 500 MG PO ONE (12:30)
[2022-03-07] MEDS ORDERED: TYLENOL EXTRA STRENGTH 500 MG ONE (12:31)
[2022-03-07 12:38] VITALS: BP 141/85; PULSE 88
== END 2022-03-07 12:44 | disposition home or self-care (01) ==
LOC: ED 11:17
DX: S02.2XXA Fracture of nasal bones, initial encounter for closed fracture (principal); S01.21XA Laceration without foreign body of nose, initial encounter; S80.02XA Contusion of left knee, initial encounter; W01.198A Fall on same level from slipping, tripping and stumbling with subsequent striking against other object, initial encounter; Y93.01 Activity, walking, marching and hiking; Y92.22 Religious institution as the place of occurrence of the external cause; R51.9 Headache, unspecified; M25.562 Pain in left knee; M54.2 Cervicalgia; I10 Essential (primary) hypertension; E11.42 Type 2 diabetes mellitus with diabetic polyneuropathy; Z79.4 Long term (current) use of insulin; Z79.899 Other long term (current) drug therapy
CPT/HCPCS: 70450; 70486; 72125; 73562; 99284; A9270-GY

== ENCOUNTER 2023-02-07 08:49 | Day surgery (SDC) | payer MEDICARE ==
[2023-02-07] MEDS ORDERED: LIDOCAINE HCL 1% 50 MG/5 ML VL PF IJ ONE (08:50)
[2023-02-07] MEDS ORDERED: Decadron 4 MG INJ IV ONE (08:50)
[2023-02-07] MEDS ORDERED: DIPRIVAN 200 MG/20 ML IV ONE (10:37)
--- NOTE | 2023-02-07 11:50 | XRAY ---
Indication: Bilateral piriformis injection. Intraoperative fluoroscopy was provided for 23 seconds. 2 digital spot image submitted for interpretation demonstrates posterior needle tip projecting over the expected left and right piriformis muscles. Small amount of contrast injected for needle tip placement. Correlate with intraoperative findings/report.
--- NOTE | 2023-02-07 12:08 | XRAY ---
23 seconds of fluoroscopy was used in surgery for a bilateral piriformis injection.
[2023-02-07] MEDS ORDERED: Lactated Ringers 1,000 ML IV ONE (15:17)
== END 2023-02-07 11:15 | disposition home or self-care (01) ==
LOC: SDC-PAIN 08:49
PROVIDERS: ATTEND Psychiatry & Neurology Pain Medicine
DX: M79.18 Myalgia, other site (principal); E11.9 Type 2 diabetes mellitus without complications; Z79.899 Other long term (current) drug therapy
CPT/HCPCS: 20552; 72170; 76942; 77002; 82947; 99100; J1100; J2001; J2704; Q9966

== ENCOUNTER 2023-03-28 06:55 | Day surgery (SDC) | payer MEDICARE ==
[2023-03-28] MEDS ORDERED: Sodium Chloride 0.9(Preservative Free) 10 ML IJ ONE (06:56)
[2023-03-28] MEDS ORDERED: LIDOCAINE HCL 1% 50 MG/5 ML VL PF IJ ONE (06:56)
[2023-03-28] MEDS ORDERED: Depo-Medrol 40 MG/ML IM ONE (06:56)
[2023-03-28] MEDS ORDERED: DIPRIVAN 200 MG/20 ML IV ONE (08:25)
--- NOTE | 2023-03-28 10:18 | XRAY ---
Indication: Lumbar PABLO. Intraoperative fluoroscopy provided for 7 seconds. 3 digital spot image submitted for interpretation demonstrates needle tip projecting posterior to the lumbosacral junction interspace. Small amount of contrast injected for needle tip placement. Correlate with intraoperative findings/report.
--- NOTE | 2023-03-28 10:55 | XRAY ---
7 seconds of fluoroscopy was used in surgery for a lumbar PABLO.
[2023-03-28] MEDS ORDERED: Lactated Ringers 1,000 ML IV ONE (13:33)
== END 2023-03-28 08:52 | disposition home or self-care (01) ==
LOC: SDC-PAIN 06:55
PROVIDERS: ATTEND Psychiatry & Neurology Pain Medicine
DX: M54.16 Radiculopathy, lumbar region (principal); E11.9 Type 2 diabetes mellitus without complications; Z79.899 Other long term (current) drug therapy
CPT/HCPCS: 62323; 72100; 77003; 82947; J1030; J2001; J2704; Q9966

== ENCOUNTER 2024-12-14 09:08 | Emergency (ER) | payer MEDICARE ==
[2024-12-14 09:26] VITALS: TEMP 97.9
--- NOTE | 2024-12-14 09:41 | ERPHSYRPT ---
- History of Present Illness Time Seen by Provider: 12/14/24 09:30 Source: patient Exam Limitations: no limitations Patient Subjective Stated Complaint: Rash Triage Nursing Assessment: Patient ambulated back to ED and transferred self to bed. Patient A+O X3. Patient's skin pink, warm and dry. Patient complains of rash to face. Patient states Sunday she started developing a blister like rash that has went up into right side of face hairline and down into right eye. Patient states a few days prior to rash she had been having headaches. Patient complains of pain to rash 04/19. Patient has line of red blister like pustules from right side of face into hairline and down into right eye. Physician History: Pt presents with a painful rash consistent with herpes zoster ophthalmicus. Onset Sunday. Started with a single lesion in the center of the forehead, then spread to the eyebrow, down the face, and to the ear. Pt reports associated headache for two days, but notes a history of migraines. Pt also reports a sensation of something in their eye and under the eyelid. Denies other lesions besides the face. Pt has been applying warm compresses per the advice of a nurse, but will switch to cold compresses as advised. Pt reports blurry vision and has been using eye drops which provided some relief. Pt states they had an echocardiogram on Sunday when the first lesion appeared. Timing/Duration: day(s) (2) Quality: painful Severity: severe Location: scalp, face Possible Causes: no cause identified Modifying Factors: Improves With: other (lubricating eye gtts improve) Associated Symptoms: change in skin texture, headache, tingling, No sore throat Allergies/Adverse Reactions: codeine Allergy (Severe, Verified 12/14/24 09:16) difficulty breathing and hives egg Allergy (Severe, Verified 12/14/24 09:16) sob, hives morphine Allergy (Severe, Verified 12/14/24 09:16) hives swelling Penicillins Allergy (Severe, Verified 12/14/24 09:16) hives swelling procaine [From Novocain] Allergy (Severe, Verified 12/14/24 09:16) hives and face swelling hydromorphone Allergy (Intermediate, Verified 12/14/24 09:16) vomiting aspirin Allergy (Mild, Verified 12/14/24 09:16) upsets stomach Home Medications: Insulin NPH Human Recom [Novolin N] 40 unit SQ HS 06/09/16 [History] Insulin Regular, Human [Novolin R] 10 unit IJ BIDWM 11/17/19 [History] Gabapentin [Neurontin ] 1 cap PO DAILY PRN 03/07/22 [History] Isosorbide Mononitrate 30 mg [Imdur 30 MG] 1 tab PO DAILY 03/07/22 [History] Metoprolol Tartrate 25 mg [Lopressor 25MG Tab] 1 tab PO BID 03/07/22 [History] Hx Tetanus, Diphtheria Vaccination/Date Given: Yes (Not Tetanus) Hx Influenza Vaccination/Date Given: Yes Hx Pneumococcal Vaccination/Date Given: Yes Immunizations Up to Date: Yes Travel Risk - International Travel Have you traveled outside of the country in past 3 weeks: No - Emerging Infectious Disease Are you exhibiting symptoms associated with any current EIDs: No - Review of Systems All Other Systems: Reviewed and Negative - Past Medical History Pertinent Past Medical History: Yes Neurological History: No Pertinent History, Peripheral Neuropathy ENT History: No Pertinent History Cardiac History: No Pertinent History, Hypertension Respiratory History: Lung Cancer, Pneumonia Endocrine Medical History: Diabetes Type II Musculoskeletal History: Fractures GI Medical History: Hemorrhoids, Other History: No Pertinent History Psycho-Social History: Anxiety Female Reproductive Disorders: No Pertinent History Other Medical History: hx collar bone fx, left lung CA, melanoma, colon CA - Past Surgical History Past Surgical History: Yes Neuro Surgical History: No Pertinent History Cardiac: No Pertinent History Respiratory: Lobectomy, Other Gastrointestinal: Bowel Surgery, Cholecystectomy, Colon Resection Genitourinary: No Pertinent History Female Surgical History: Hysterectomy Other Surgical History: 3 sections of left lung removed for growth benign, 12 inches of small intesting removed, left lower lobectomy - Social History Smoking Status: Never smoker Exposure to second hand smoke: No Drug Use: none - Social Determinants of Health Will the patient participate in the screening: Yes Do you worry about a steady place to live?: No Do you have any problems with any of the following?: No known problems In the past 12 months,have you had to go without utilities?: No Transportation Issues: No Has anyone in your support network made you feel unsafe?: No Have you or anyone in your house had to go w/o enough food: No - Nursing Vital Signs Nursing Vital Signs: Initial Vital Signs Blood Pressure 161/107 12/14/24 09:17 Pain Scale Pain Intensity 4 - Physical Exam General Appearance: no apparent distress Eye Exam: PERRL/EOMI, other (zoster lesion right eyelid, forehead) Ears, Nose, Throat Exam: normal ENT inspection, No pharyngeal erythema Neck Exam: normal inspection, non-tender, supple, full range of motion Respiratory Exam: normal breath sounds, lungs clear, airway intact, No respiratory distress Cardiovascular Exam: regular rate/rhythm SpO2: 98 - Course Nursing assessment & vital signs reviewed: Yes Ordered Tests: Medication Summary Discontinued Medications Generic Name Dose Route Start Last Admin Trade Name Freq PRN Reason Stop Dose Admin Hydrocodone Bitart/Acetaminophen 1 tab 12/14/24 09:52 12/14/24 10:00 Hydrocodone/Apap 5/325 1 Tab Tablet PO 12/14/24 09:53 1 tab STAT ONE Administration Hydrocodone Bitart/Acetaminophen Confirm 12/14/24 09:56 Hydrocodone/Apap 5/325 1 Tab Tablet Administered 12/14/24 09:57 Dose 1 tab .ROUTE .STK-MED ONE Acyclovir 900 mg 12/14/24 09:41 12/14/24 10:09 Acyclovir 200 Mg Capsule PO 12/14/24 09:42 Not Given STAT ONE Acyclovir 800 mg 12/14/24 10:00 12/14/24 10:09 Acyclovir 800 Mg Tablet PO 12/14/24 10:01 800 mg STAT ONE Administration Gabapentin 300 mg 12/14/24 09:44 12/14/24 10:09 Gabapentin 300 Mg Capsule PO 12/14/24 09:45 300 mg STAT ONE Administration - Progress Progress: improved Progress Note: 12/14/24 10:21 -Herpes Zoster Ophthalmicus (possible due to painful rash on forehead, eyebrow, face, and ear, associated headache, sensation in eye, blurry vision) Due to the chief complaint, the following diagnoses were also considered but the signs/symptoms, physical exam, and data points are not consistent with any of the following: contact dermatitis, impetigo, cellulitis, erysipelas, psoriasis, eczema, seborrheic dermatitis, rosacea, drug eruption, allergic reaction, insect bites, scabies, varicella, measles, rubella, Nayla Lo syndrome, trigeminal neuralgia, temporal arteritis, giant cell arteritis, stroke, meningitis. 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 The patient's history of chickenpox supports this diagnosis. Shared decision making was used to determine the treatment plan, which includes antiviral medication, increased gabapentin for nerve pain, and [place] for pain control. The patient was referred to ophthalmology for evaluation of the eye symptoms. Counseled pt/family regarding: diagnosis, need for follow-up Medical Desision Making - Diagnostic Testing Diagnostic test were ordered, analyzed, and reviewed by me: No - Risk of complications The pt has a mod risk of morbidity or mortality based on: Need for prescription drug management - Departure Departure Disposition: Home Clinical Impression: Shingles of eyelid, Shingles, Ophthalmic herpes zoster Condition: Good Critical Care Time: No Referrals: SAMUEL KENNEDY MD [Primary Care Provider] - Follow up/PCP as directed ANGE RAYGOZA MD [NON-STAFF PHY W/O PRIVILEGES] - 12/15/24 Instructions: Shingles Prescriptions: Hydrocodone/Acetaminophen [Hydrocodone-Acetamin 5-325 mg] 1 tab PO Q6HPRN PRN 7 Days #28 tablet MDD 4 PRN Reason: Pain Gabapentin 300 mg PO TID PRN 10 Days #30 cap PRN Reason: Pain Valacyclovir HCl [Valtrex] 1,000 mg PO TID 10 Days #30 tablet
[2024-12-14] MEDS ORDERED: NORCO 5/325 MG ONE (09:56)
[2024-12-14] MEDS: NORCO 5/325 MG PO ONE (10:00)
[2024-12-14] MEDS: NEURONTIN PO ONE (10:09)
[2024-12-14] MEDS: ACYCLOVIR PO ONE ×2 (10:09)
[2024-12-14 10:37] VITALS: BP 168/98; PULSE 78; RESP 18
[2024-12-14 14:25] VITALS: O2SAT 98
== END 2024-12-14 10:37 | disposition home or self-care (01) ==
LOC: ED 09:08
DX: B02.30 Zoster ocular disease, unspecified (principal); R51.9 Headache, unspecified; I10 Essential (primary) hypertension; E11.42 Type 2 diabetes mellitus with diabetic polyneuropathy; Z79.891 Long term (current) use of opiate analgesic; Z79.4 Long term (current) use of insulin; Z79.899 Other long term (current) drug therapy
CPT/HCPCS: 99283; 99284; A9270-GY